=== PATIENT | female | born 1965 | race Asian ===

== ENCOUNTER → 2020-05-03 09:07 | Outpatient (CLI) | payer OTHER, SELFPAY ==
[2020-05-03 09:38] LABS: Hematocrit 43.3 % (36-46); Hemoglobin 14.1 g/dL (12.0-16.0); Mean Corpuscular HGB Conc 32.6 % (30-36); Mean Corpuscular Hemoglobin 27.3 PG (26-34); Mean Corpuscular Volume 83.8 fL (80-100); Platelet Count 318 X10^3/uL (150-400); Red Blood Cell Count 5.16 X10^6/uL (4.0-5.2); Red Cell Distribution Width 13.5 % (11.6-14.8); White Blood Cell Count 5.3 X10^3/uL (4.5-11.0)
[2020-05-03 10:11] LABS: Alanine Aminotransferase 30 IU/L (<35); Albumin 4.6 g/dL (3.5-5.0); Albumin Globulin Ratio 1.3 (1.0-2.8); Alkaline Phosphatase 97 U/L (38-126); Aspartate Aminotransferase 32 IU/L (14-36); Bilirubin Total 0.5 mg/dL (0.2-1.3); Blood Urea Nitrogen 11 mg/dL (7-17); Calcium 9.2 mg/dL (8.4-10.2); Carbon Dioxide 27 mmol/L (22-32); Chloride 105 mmol/L (98-107); Cholesterol 219 mg/dL (140-199); Estimated Glomerular Filt Rate > 60.0 mL/min (>60); Globulin 3.6 g/dL (1.7-4.1); Glucose 102 mg/dL (70-100); HDL Cholesterol 55 mg/dL (40-60); HEMOLYSIS < 15 (0-50); LDL Cholesterol Calculated 125 mg/dL (<100); Potassium 4.1 mmol/L (3.4-5.1); Sodium 139 mmol/L (137-145); Total Protein 8.2 g/dL (6.3-8.2); Triglycerides 197 mg/dL (35-150)
[2020-05-03 10:39] LABS: TSH w/ Reflex to FT4 2.23 uIU/mL (0.47-4.68)
== END ==
PROVIDERS: PCP Registered Nurse Diabetes Educator; Referring Provider Registered Nurse Diabetes Educator; Visit Provider Registered Nurse Diabetes Educator
DX: Z00.00 Encounter for general adult medical examination without abnormal findings (principal)
CPT/HCPCS: 36415; 80053; 80061; 84443; 85027

== ENCOUNTER → 2020-05-09 16:43 | Outpatient (CLI) | payer OTHER, SELFPAY ==
--- NOTE | 2020-05-09 16:44 | DI.MG.S_ITS ---
BILATERAL DIGITAL SCREENING MAMMOGRAM 3D/2D WITH CAD: 05/09/2020 CLINICAL: Routine screening. Comparison is made to exams dated: 05/14/2016 mammogram, 08/18/2014 mammogram - [facility], 09/06/2010 mammogram - [facility], and 06/01/2013 mammogram - [facility]. The tissue of both breasts is heterogeneously dense. This may lower the sensitivity of mammography. Current study was also evaluated with a Computer Aided Detection (CAD) system. No significant masses, calcifications, or other findings are seen in either breast. There has been no significant interval change. IMPRESSION: NEGATIVE There is no mammographic evidence of malignancy. A 1 year screening mammogram is recommended. This exam was interpreted at Station ID: [id number]. NOTE: For mammograms, a report in lay terms will be sent to the patient. Approximately 15% of breast malignancies will not be visualized mammographically. In the management of a palpable breast mass, a negative mammogram must not discourage biopsy of a clinically suspicious lesion. Electronically Signed By: Fadi soriano/guille:05/09/2020 17:09:36 letter sent: Normal Exam ACR BI-RADS Category 1: Negative 3341F
== END ==
PROVIDERS: PCP Registered Nurse Diabetes Educator; Referring Provider Registered Nurse Diabetes Educator; Visit Provider Registered Nurse Diabetes Educator
DX: Z12.31 Encounter for screening mammogram for malignant neoplasm of breast (principal)
CPT/HCPCS: 77063; 77067

== ENCOUNTER → 2020-11-13 10:34 | Outpatient (CLI) | payer OTHER, SELFPAY | PROVIDERS: PCP Registered Nurse Diabetes Educator; Referring Provider Registered Nurse Diabetes Educator; Visit Provider Registered Nurse Diabetes Educator | DX: N89.8 Other specified noninflammatory disorders of vagina (principal) | CPT/HCPCS: 87210; 87220 ==

== ENCOUNTER → 2022-07-31 12:29 | Outpatient (CLI) | payer OTHER, SELFPAY ==
[2022-07-31 13:05] LABS: Hematocrit 41.8 % (36-46); Hemoglobin 13.8 g/dL (12.0-16.0); Mean Corpuscular HGB Conc 32.9 % (30-36); Mean Corpuscular Hemoglobin 27.4 PG (26-34); Mean Corpuscular Volume 83.2 fL (80-100); Platelet Count 313 X10^3/uL (150-400); Red Blood Cell Count 5.02 X10^6/uL (4.0-5.2); Red Cell Distribution Width 13.5 % (11.6-14.8); White Blood Cell Count 6.1 X10^3/uL (4.5-11.0)
[2022-07-31 13:33] LABS: Alanine Aminotransferase 30 IU/L (<35); Albumin 4.8 g/dL (3.5-5.0); Albumin Globulin Ratio 1.3 (1.0-2.8); Alkaline Phosphatase 96 U/L (38-126); Aspartate Aminotransferase 31 IU/L (14-36); BUN Creatinine Ratio 24.1 (6-22); Bilirubin Total 0.7 mg/dL (0.2-1.3); Blood Urea Nitrogen 14 mg/dL (7-17); Calcium 9.3 mg/dL (8.4-10.2); Carbon Dioxide 27 mmol/L (22-32); Chloride 102 mmol/L (98-107); Cholesterol 236 mg/dL (140-199); Estimated Glomerular Filt Rate > 60 mL/min (>60); Globulin 3.6 g/dL (1.7-4.1); Glucose 87 mg/dL (70-100); HDL Cholesterol 67 mg/dL (40-60); HEMOLYSIS < 15 (0-50); LDL Cholesterol Calculated 135 mg/dL (<100); Potassium 4.1 mmol/L (3.4-5.1); Sodium 139 mmol/L (137-145); Total Protein 8.4 g/dL (6.3-8.2); Triglycerides 171 mg/dL (35-150)
[2022-07-31 14:01] LABS: TSH w/ Reflex to FT4 1.92 uIU/mL (0.47-4.68)
== END ==
PROVIDERS: PCP Registered Nurse Diabetes Educator; Referring Provider Registered Nurse Diabetes Educator; Visit Provider Registered Nurse Diabetes Educator
DX: E78.5 Hyperlipidemia, unspecified (principal); R73.01 Impaired fasting glucose
CPT/HCPCS: 36415; 80053; 80061; 84443; 85027

== ENCOUNTER → 2022-08-17 09:59 | Outpatient (CLI) | payer OTHER, SELFPAY ==
--- NOTE | 2022-08-17 | DI.MG.S_ITS ---
BILATERAL DIGITAL SCREENING MAMMOGRAM 3D/2D WITH CAD: 08/17/2022 CLINICAL: Routine screening. Comparison is made to exams dated: 05/09/2020 mammogram, 05/14/2016 mammogram, and 08/18/2014 mammogram - [facility]. Both breasts are heterogeneously dense, which may obscure small masses (category c / 51-75% glandular tissue). Current study was also evaluated with a Computer Aided Detection (CAD) system. No significant masses, calcifications, or other findings are seen in either breast. There has been no significant interval change. IMPRESSION: NEGATIVE There is no mammographic evidence of malignancy. A 1 year screening mammogram is recommended. Based on the Tyrer Cuzick model (a risk assessment model) the patient's lifetime risk is 9.3% and her 10 year risk is 3.0%. According to the ACR, ACS, and NCCN guidelines, an annual breast MRI exam along with mammogram is recommended if the patient's lifetime risk is 20% or greater. This exam was interpreted at Station ID: [id number]. NOTE: For mammograms, a report in lay terms will be sent to the patient. Approximately 15% of breast malignancies will not be visualized mammographically. In the management of a palpable breast mass, a negative mammogram must not discourage biopsy of a clinically suspicious lesion. Electronically Signed By: Jas girard/guille:08/19/2022 08:09:08 letter sent: Normal Exam ACR BI-RADS Category 1: Negative 3341F
== END ==
PROVIDERS: PCP Registered Nurse Diabetes Educator; Referring Provider Registered Nurse Diabetes Educator; Visit Provider Registered Nurse Diabetes Educator
DX: Z12.31 Encounter for screening mammogram for malignant neoplasm of breast (principal)
CPT/HCPCS: 77063; 77067

== ENCOUNTER 2022-11-01 11:52 | Day surgery (SDC) | payer OTHER, SELFPAY ==
[2022-11-01] VITALS (7 sets, daily range): BP systolic 89–118; BP diastolic 52–73; PULSE 63–77; RESP 12–20; TEMP 36.1–36.5; O2SAT 98–100; BMI 22.3
--- NOTE | 2022-11-01 | PATH_ITS ---
[facility] Accession Number: [id number] No. of containers..01 Tissue . 01 Material submitted: . colon - CECAL POLYP . 01 Diagnosis: Cecal Polyp: Tubular adenoma. MRV 11/08/2022 1328 Local . 01 Electronically signed: . Mikie Sullivan MD, PhD, Pathologist NPI- [id number] . 01 Gross description: . CECAL POLYP: Received in formalin are multiple fragment(s) of quintero, soft tissue measuring 1.5 x 0.4 x 0.2 cm in aggregate submitted entirely in 1 cassette(s) /TRC 11/06/2022 1552 Local . 01 Pathologist provided ICD-10: D12.0 . 01 CPT . 262214 Specimen Comment: A courtesy copy of this report has been sent to [facility] Pathology Performed at: 01 [facility] [address] [place] [address], [place], [place] [id number] MD Fadi Aragon MD Phone: [phone]
[2022-11-01] MEDS: LACTATED RINGERS 1,000 ML 100 ML IV (12:31)
--- NOTE | 2022-11-01 12:36 | PM.HP.1 ---
History of Present Illness History of Present Illness Date Patient Seen: 11/01/22 Time Patient Seen: 12:36 Chief complaint: Screening Colonoscopy Narrative: Ms. Oleary is a 57-year-old female who presents today for her 1st screening colonoscopy. She has a maternal uncle who was diagnosed with colon cancer. Otherwise no other family members who have had colon cancer. She has no concerning symptoms and denies blood in her stool however she says that she is often constipated. She is feeling a little nervous because her 1st time, but otherwise she has no questions or concerns and wants to proceed. [facility] Medical History Anemia (~2013) Chronic GERD Dizziness Dyslipidemia Impaired fasting blood sugar Lichen sclerosus et atrophicus of the vulva Vitiligo Surgical History Anesthesia History of third molar tooth extraction Status post laparoscopic supracervical hysterectomy (09/26/14) Family History Mother Cancer Social History (Updated 11/13/20 @ 10:08 by JAKI Abraham) household members: family Smoking Status: Never smoker alcohol intake: never additional social history: 05/02/2020 She lives in [place], [place] with her . They have 1 28-year-old son who lives in [place], no grandchildren. 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 Meds Home Medications and Allergies Home Medications Medication Instructions Recorded Confirmed Type famotidine 20 mg tablet (Pepcid) 20 mg PO BID #60 tabs 07/31/22 11/01/22 Rx cholecalciferol (vitamin D3) 250 250 mcg PO DAILY 09/02/22 11/01/22 History mcg (10,000 unit) capsule Allergies Allergy/AdvReac Type Severity Reaction Status Date / Time No Known Drug Allergies Allergy Verified 09/02/22 16:06 Exam Vital Signs (past 8 hours): - 11/01/22 12:19 Temperature 97.2 F L Pulse Rate 65 Respiratory Rate 20 Blood Pressure 107/66 Pulse Oximetry 98 Oxygen Delivery Method Room Air Oxygen Delivery Method Room Air Const General: cooperative, healthy appearing and comfortable HENMT Head: normal to inspection Mouth: oral mucosae normal Eyes General: appearance normal, both eyes and all related structures Resp Effort & Inspection: normal respiratory effort and able to speak in complete sentences Cardio Pulses: radial pulses present GI Palpation: soft and No tender Assessment & Plan Assessment and plan (1) Screening for colon cancer: Status: Acute (2) Family history of malignant neoplasm of colon in relative diagnosed when older than 50 years of age: Status: Acute Assessment & Plan narrative: Presents today for screening colonoscopy I discussed the risks benefits and alternatives including but not limited to perforation of the colon and an incomplete exam she fully understands these risks and would like to proceed.
--- NOTE | 2022-11-01 12:39 | P.OP.COLON_ITS ---
Operative Date/Time/Diagnoses Date of procedure: 11/01/22 Time of procedure: 12:39 Pre-op diagnosis: Screening for colon cancer, family history of colon cancer in maternal uncle. Post-op diagnosis: same Procedure & Clinicians Study performed: Colonoscopy, and biopsy Same procedure as scheduled: Yes Indications: Screening for colon cancer and maternal uncle with colon cancer Surgeon: Ana Garcia Procedure Notes Procedure in detail: Patient was taken to the endoscopy suite and placed in a left lateral decubitus position. A time-out was performed. An anesthesiologist assisted with conscious sedation and monitoring throughout the case. Digital rectal exam was performed there were no masses or strictures. The colonoscope was introduced into the anal canal and advanced through to the cecum. Some abdominal pressure was required to reach the cecum. A photograph was obtained of the appendiceal orifice and there was a small cecal polyp which was removed completely with biopsy forceps, and sent for pathology. Photographs were obtained. The bowel prep was excellent Sturgeon bowel prep score of 3. The scope was then withdrawn slowly for the duration of 18 minutes including the biopsy time. The scope was then retroflexed and a photograph of the hemorrhoidal piles was obtained. Specimen(s): other (Small cecal polyp) Post-procedure Recommendations: Colonoscopy in 5 years Plan for aftercare: With family history of colon cancer 5 year follow-up is recommended
== END 2022-11-01 14:21 | disposition home or self-care (01) ==
PROVIDERS: PCP Registered Nurse Diabetes Educator; Referring Provider Surgery; Visit Provider Surgery
PROC: 0DJD8ZZ Inspection of Lower Intestinal Tract, Via Natural or Artificial Opening Endoscopic (ICD-10-PCS; CPT 45378; principal; 2022-11-01 13:00)
DX: Z12.11 Encounter for screening for malignant neoplasm of colon (principal); D12.0 Benign neoplasm of cecum
CPT/HCPCS: 45380; J2704

== ENCOUNTER 2023-08-13 12:06 | Emergency (ER) | payer OTHER, SELFPAY ==
[2023-08-13 12:16] VITALS: BP 130/65; PULSE 66; RESP 18; TEMP 37; O2SAT 100; BMI 21.7
--- NOTE | 2023-08-13 12:22 | DI.RAD.S_ITS ---
PROCEDURE: XR SHOULDER LT MIN 2V INDICATIONS: pain/pop TECHNIQUE: 3 views of the shoulder were acquired. COMPARISON: None. FINDINGS: Bones: No fractures or dislocations. No suspicious bony lesions. Visualized ribs appear intact. Soft tissues: No suspicious soft tissue calcifications. IMPRESSION: No acute left shoulder fracture or dislocation. Dictated by: Joseph Rick M.D. on 08/13/2023 at 13:05 Approved by: Joseph Rick M.D. on 08/13/2023 at 13:05
--- NOTE | 2023-08-13 13:08 | ED.UPPEXIN ---
HPI - Extremity Injury (Upper) <Eneida Nicolas PA-C - Last Filed: 08/14/23 09:43> General Chief Complaint: Extremity Injury, Upper Stated Complaint: L Arm/Shoulder Pain Numbness, [facility] Time Seen by Provider: 08/13/23 13:08 Source: patient Mode of arrival: Wheelchair History of Present Illness HPI narrative: Patient is a 58-year-old female with history of GERD, dyslipidemia who presents with left shoulder pain x1 week. She reports recently lifting many heavy boxes of files at her work place into storage overhead. Her shoulder pain started after this. The pain does not seem to be getting better with time. She is tried taking ibuprofen 200 mg on several occasions, which does not seem to help. She has occasionally tried ice. She also endorses intermittent numbness and tingling of the left upper extremity and intermittent weakness of her enrober tender. She denies chest pain, difficulty breathing, history of blood clots, lower extremity swelling or pain, history of heart disease or heart attack. The pain sometimes wakes her at night. The pain radiates into the upper back and neck. Related Data Home Medications Medication Instructions Recorded Confirmed cholecalciferol (vitamin D3) 250 250 mcg PO DAILY 09/02/22 08/14/23 mcg (10,000 unit) capsule Previous Rx's Medication Instructions Recorded famotidine 20 mg tablet (Pepcid) 20 mg PO BID #60 tabs 07/31/22 Allergies Allergy/AdvReac Type Severity Reaction Status Date / Time No Known Drug Allergies Allergy Verified 08/14/23 14:32 Review of Systems <Eneida Nicolas PA-C - Last Filed: 08/14/23 09:43> Review of Systems ROS Unobtainable: All systems reviewed & are unremarkable except as noted in HPI and below Patient History <Eneida Nicolas PA-C - Last Filed: 08/14/23 09:43> Medical History Chronic GERD Lichen sclerosus et atrophicus of the vulva Dizziness Anemia (~2013) Impaired fasting blood sugar Dyslipidemia Vitiligo Surgical History Anesthesia Status post laparoscopic supracervical hysterectomy (09/26/14) History of third molar tooth extraction Family History Mother Cancer Social History household members: family Smoking Status: Never smoker alcohol intake: never additional social history: 05/02/2020 She lives in [place], [place] with her . They have 1 28-year-old son who lives in [place], no grandchildren. 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 Smoking Status: Never smoker Substance Use Type: does not use Exam <Eneida Nicolas PA-C - Last Filed: 08/14/23 09:43> Narrative Exam Narrative: GENERAL: 58 year old patient appears stated age. Well-developed patient, in no acute distress. NEURO: AOx3. HEAD: Atraumatic. Normocephalic. EYES: Pupils equal round and reactive. Extraocular motions intact. No scleral icterus. No injection or drainage. ENT: Nose without bleeding or purulent drainage. Airway patent. RESPIRATORY: No increased work of breathing EXTREMITIES: Tender to palpation over the left trapezius and upper scapula. No midline spinal pain to palpation. Patient has strong and equal enrober tender in both hands, intact sensation and strong radial pulse. Patient has left shoulder pain with abduction, forward flexion. Negative empty can test. SKIN: No rash or erythema of visible areas Initial Vital Signs Initial Vital Signs: Vital Signs Temperature 98.6 F 08/13/23 12:16 Pulse Rate 66 08/13/23 12:16 Respiratory Rate 18 08/13/23 12:16 Blood Pressure 130/65 08/13/23 12:16 Pulse Oximetry 100 08/13/23 12:16 Oxygen Delivery Method Room Air 08/13/23 12:[address] <[address] MD - Last Filed: 08/14/23 17:58> Initial Vital Signs Initial Vital Signs: Vital Signs Temperature 98.6 F 08/13/23 12:16 Pulse Rate 66 08/13/23 12:16 Respiratory Rate 18 08/13/23 12:16 Blood Pressure 130/65 08/13/23 12:16 Pulse Oximetry 100 08/13/23 12:16 Oxygen Delivery Method Room Air 08/13/23 12:16 Course <Eneida Nicolas PA-C - Last Filed: 08/14/23 09:43> Orders Ordered: ED Orders 08/13/23 12:22 XR shoulder LT min 2V Stat Vital Signs Vital signs: Vital Signs - 8 hr 08/13/23 12:16 Temperature 98.6 F Pulse Rate 66 Respiratory Rate 18 Blood Pressure 130/65 Pulse Oximetry 100 Oxygen Delivery Method Room Air <Makayla Lane MD - Last Filed: 08/14/23 17:58> Orders Ordered: ED Orders 08/13/23 12:22 XR shoulder LT min 2V Stat Vital Signs Vital signs: Vital Signs - 8 hr 08/13/23 12:16 Temperature 98.6 F Pulse Rate 66 Respiratory Rate 18 Blood Pressure 130/65 Pulse Oximetry 100 Oxygen Delivery Method Room Air MDM - Extremity Injury (Upper) <Eneida Nicolas PA-C - Last Filed: 08/14/23 09:43> Imaging Data Extremity x-ray #1: Radiologist's Impression: PROCEDURE: XR SHOULDER LT MIN 2V INDICATIONS: pain/pop TECHNIQUE: 3 views of the shoulder were acquired. COMPARISON: None. FINDINGS: Bones: No fractures or dislocations. No suspicious bony lesions. Visualized ribs appear intact. Soft tissues: No suspicious soft tissue calcifications. IMPRESSION: No acute left shoulder fracture or dislocation. Dictated by: Joseph Rick M.D. on 08/13/2023 at 13:05 Approved by: Joseph Rick M.D. on 08/13/2023 at 13:05 [facility] Narrative Medical decision making narrative: Multiple etiologies for patient's symptoms considered including, but not limited to: Left shoulder fracture, dislocation, tendinitis, rotator cuff injury, frozen shoulder, impingement syndrome Patient is a 58-year-old who presents with acute left shoulder pain that was preceded by lifting heavy boxes onto a high storage shelf overhead. She has tried therapy of intermittent icing and 200 mg of ibuprofen, which is likely a sub therapeutic dose. She is afraid of taking medicine. She is worried about having a heart attack. She has must kilo skeletal pain on palpation and exam. Her vital signs are within normal limits and she looks well. X-ray without acute findings. Suspect overuse injury and impingement syndrome. Advised trial of frequent icing, therapeutic dose of ibuprofen at 100 mg every 6 hours scheduled and referral to physical therapy. She does have a primary care provider and I advised her to contact them to obtain referral to PT to streamline the process. Patient is agreeable to this but still quite concerned. I also encouraged her to make a follow up appointment with her PCP to discuss general health concerns. Patient's symptoms improved over duration of stay with above-stated therapies. Findings and discharge diagnosis discussed with patient/family followed by verbalization of understanding Return precautions discussed with patient/family whom verbalize understanding of diagnosis and plan Discharge Plan Departure Patient Disposition: Home Clinical Impression: Left shoulder strain Qualifiers: Encounter type: initial encounter Qualified Code(s): S46.912A - Strain of unspecified muscle, fascia and tendon at shoulder and upper arm level, left arm, initial encounter Instructions: DI for Shoulder Sprain Activity Restrictions/Additional Instructions: *You have been diagnosed with left shoulder strain. I would advise you to take 600 mg of ibuprofen every 6 hours with a small snack to decrease the pain and inflammation in your shoulder. I would advise using ice for 15 minutes every 1-2 hours while awake. I believe that physical therapy would be helpful for you. I have put the contact information below and you can call them to set up an appointment. Please make a ER follow up appointment with Kee Dominguez for reassessment. Your x-ray does not show any bony abnormality of your shoulder. *What to do: *Please continue to take your regular medications as directed. [ ] New medication prescriptions sent to your pharmacy: [ ] [ ] New medication written as a paper prescription [x] No new medications given *Please follow up with your primary care provider in 2-3 days, call for an appointment. Let them know you were seen in the Emergency Department and that we ask that you be seen in follow up. We will electronically transmit a record of today's note if your PCP is in our system *If you do not have a primary care provider please contact the [facility] Resource line at [phone]. They will ask some questions about your medical history and help get you set up with a doctor in the community. *Return to Emergency Department if you should have any new, worsening or concerning symptoms, such as [fever greater than 101 F, shaking chills, worsening pain, persistent vomiting or other concerning symptoms]. Prescriptions: No Action famotidine [Pepcid] 20 mg tablet 20 mg PO BID Qty: 60 2RF cholecalciferol (vitamin D3) 250 mcg (10,000 unit) capsule 250 mcg PO DAILY Referrals: [facility] [Provider Group] Kee Milian ARNP [Primary Care Provider] - Stand Alone Forms: Patient Portal/API ED Sign-out <Makayla Lane MD - Last Filed: 08/14/23 17:58> Cosign ED Attending Cosyaredature Attestation: I was immediately available in the department for consultation throughout this patient's visit. Makayla Lane MD
--- NOTE | 2023-08-13 13:19 | PC.NURSE ---
Pt was seen and assessed by provider and xray result back prior to this RN arrival.
== END 2023-08-13 13:37 | disposition home or self-care (01) ==
PROVIDERS: Emergency Provider Physician Assistant; PCP Registered Nurse Diabetes Educator
DX: S46.912A Strain of unspecified muscle, fascia and tendon at shoulder and upper arm level, left arm, initial encounter (principal); X50.0XXA Overexertion from strenuous movement or load, initial encounter
CPT/HCPCS: 73030; 99281; 99283

== ENCOUNTER → 2024-07-13 14:46 | Outpatient (CLI) | payer OTHER, SELFPAY ==
[2024-07-14 14:53] LABS: Influenza A - CEPHEID Flu A POSITIVE (NEGATIVE); Influenza B - CEPHEID Flu B NEGATIVE (NEGATIVE); Respiratory Syncytial Virus Negative (Negative)
[2024-07-14 14:54] LABS: COVID-19 CEPHEID 4-PLEX PCR Negative (Negative)
== END ==
PROVIDERS: PCP Registered Nurse Diabetes Educator; Visit Provider Student in an Organized Health Care Education/Training Program
DX: R05.1 Acute cough (principal)
CPT/HCPCS: 0241U

== ENCOUNTER → 2024-07-28 15:45 | Outpatient (CLI) | payer OTHER, SELFPAY | PROVIDERS: PCP Registered Nurse Diabetes Educator; Visit Provider Physician Assistant | DX: N89.8 Other specified noninflammatory disorders of vagina (principal) | CPT/HCPCS: 87210 ==